=== PATIENT | female | born 1995 | race Caucasian/White ===

== ENCOUNTER → 2017-11-18 | Outpatient (CLI) | payer OTHER ==
[2017-11-18 12:53] LABS: ALT 27 U/L (9-52); AST 16 U/L (14-36); Anion Gap 11 mmol/L; Blood Urea Nitrogen 10 mg/dL (7-17); Carbon Dioxide 24 mmol/L (22-30); Chloride 105 mmol/L (98-107); Cholesterol 123 mg/dL (<200); Glucose 87 mg/dL (74-99); HDL Cholesterol 85 mg/dL (40-60); LDL Cholesterol,Calculated 16 mg/dL (0-99); Potassium 4.2 mmol/L (3.5-5.1); Sodium 140 mmol/L (137-145); Triglycerides 108 mg/dL (<150)
[2017-11-18 12:56] LABS: Basophils % (A) 1 %; Eosinophils # (A) 0.1 k/uL (0-0.7); Eosinophils % (A) 3 %; HCT 41.2 % (34.0-46.0); HGB 13.9 gm/dL (11.4-16.0); Lymphocytes # (A) 1.9 k/uL (1.0-4.8); Lymphocytes % (A) 43 %; MCHC 33.7 g/dL (31.0-37.0); Mean Platelet Volume 6.4; Monocytes # (A) 0.2 k/uL (0-1.0); Monocytes % (A) 5 %; Neutrophils # (A) 2.1 k/uL (1.3-7.7); Neutrophils % (A) 48 %; Platelet Count 282 k/uL (150-450); RDW 12.3 % (11.5-15.5); WBC 4.5 k/uL (4.0-11.0)
[2017-11-18 13:01] LABS: Appearance,Urine Cloudy (Clear); Bacteria,Urine Rare /hpf; Bilirubin,Urine Negative (Negative); Blood,Urine Negative (Negative); Color,Urine Yellow; Glucose,Urine (UA) Negative (Negative); Ketones,Urine Negative (Negative); Leukocyte Esterase,Urine Small (Negative); Mucus,Urine Few /hpf; Nitrite,Urine Negative (Negative); PH, Urine 5.5 (5.0-8.0); Protein,Urine Trace (Negative); RBC,Urine 2 /hpf (0-5); Specific Gravity,Urine 1.021 (1.001-1.035); Squamous Epithelial Cell,Urine 12 /hpf (0-4); Urobilinogen,Urine <2.0 mg/dL (<2.0); WBC,Urine 5 /hpf (0-5)
[2017-11-20 14:42] LABS: C. trachomatis,PCR Negative (Neg,Equiv); Chlamydia trachomatis Source Urine; N. gonorrhoeae,PCR Negative (Neg,Equiv); Neisseria Source Urine
== END | disposition home or self-care (01) ==
LOC: LABWHC1 12:10
PROVIDERS: ATTEND Family Medicine
DX: Z00.00 Encounter for general adult medical examination without abnormal findings (principal); Z82.49 Family history of ischemic heart disease and other diseases of the circulatory system
CPT/HCPCS: 36415; 80048; 80061; 81001; 84450; 84460; 85025; 87491; 87591

== ENCOUNTER → 2019-04-28 | Outpatient (CLI) | payer OTHER ==
--- NOTE | 2019-04-28 13:00 | CT ---
EXAMINATION TYPE: CT brain wo con DATE OF EXAM: 04/28/2019 COMPARISON: Prior brain CT 05/15/2016 HISTORY: Headache CT DLP: 1094 mGycm. Automated Exposure Control for Dose Reduction was Utilized. TECHNIQUE: CT scan of the head is performed without contrast. FINDINGS: There is no acute intracranial hemorrhage, mass effect, or midline shift identified. The ventricles and sulci are within normal limits in size. The globes are intact and the visualized sin uses are clear. IMPRESSION: No acute intracranial hemorrhage, mass effect, or midline shift is seen.
[2019-04-28 13:04] LABS: Basophils % (A) 1 %; Eosinophils % (A) 1 %; HCT 39.8 % (34.0-46.0); HGB 13.3 gm/dL (11.4-16.0); Lymphocytes # (A) 2.2 k/uL (1.0-4.8); Lymphocytes % (A) 47 %; MCH 28.9 pg (25.0-35.0); MCHC 33.3 g/dL (31.0-37.0); MCV 86.8 fL (80.0-100.0); Mean Platelet Volume 6.7; Monocytes # (A) 0.2 k/uL (0-1.0); Monocytes % (A) 4 %; Neutrophils # (A) 2.1 k/uL (1.3-7.7); Neutrophils % (A) 46 %; Platelet Count 276 k/uL (150-450); RBC 4.59 m/uL (3.80-5.40); RDW 15.6 % (11.5-15.5); WBC 4.5 k/uL (3.8-10.6)
[2019-04-28 13:27] LABS: ALT 8 U/L (9-52); AST 16 U/L (14-36); African American GFR (CKD) >90 (>60 ml/min/1.73 sqM); Albumin 4.4 g/dL (3.5-5.0); Alkaline Phosphatase 44 U/L (38-126); Anion Gap 11 mmol/L; Blood Urea Nitrogen 11 mg/dL (7-17); Calcium 9.6 mg/dL (8.4-10.2); Carbon Dioxide 19 mmol/L (22-30); Chloride 109 mmol/L (98-107); Glucose 73 mg/dL (74-99); Potassium 4.1 mmol/L (3.5-5.1); Sodium 139 mmol/L (137-145); Total Bilirubin 0.5 mg/dL (0.2-1.3); Total Protein 7.3 g/dL (6.3-8.2)
== END | disposition home or self-care (01) ==
LOC: RADCTMAIN 12:14
PROVIDERS: ATTEND Physician Assistant
DX: R51 Headache (principal)
CPT/HCPCS: 70450; 80053; 85025